=== PATIENT | male | born 1975 | race Caucasian/White ===

== ENCOUNTER 2024-03-14 13:24 | Inpatient (IN) | payer OTHER ==
[2024-03-14 14:03] VITALS: BMI 29.5
[2024-03-14] MEDS ORDERED: DICYCLOMINE HCL 10 MG CAPSULE PO PRN (14:56)
[2024-03-14] MEDS ORDERED: POLYETHYLENE GLYCOL (HEALTHYLAX) 3350 17 GM PACKET PO PRN (14:56)
[2024-03-14] MEDS ORDERED: IBUPROFEN 400 MG TABLET (FP) PO PRN (14:56)
[2024-03-14] MEDS ORDERED: NALOXONE HCL (KLOXXADO) 8 MG SPRAY NS PRN (14:56)
[2024-03-14] MEDS ORDERED: NALOXONE HCL 0.4 MG/ML VIAL IM PRN (14:56)
[2024-03-14] MEDS ORDERED: ACETAMINOPHEN 325 MG TABLET (FP) PO PRN (14:56)
[2024-03-14] MEDS ORDERED: BENZONATATE 200 MG CAPSULE PO PRN (14:56)
[2024-03-14] MEDS ORDERED: guaiFENesin 600 MG TABLET.ER (FP) PO PRN (14:56)
[2024-03-14] MEDS ORDERED: ONDANSETRON *ODT* 4 MG TABLET SL PRN (14:56)
[2024-03-14] MEDS ORDERED: NICOTINE POLACRILEX 4 MG GUM BUC PRN (14:56)
[2024-03-14] MEDS ORDERED: MAGNESIUM HYDROX 2400MG/30ML ORAL SUSPENSION 30 ML CUP PO PRN (14:56)
[2024-03-14] MEDS ORDERED: BENZOCAINE/MENTHOL (CHLORASEPTIC ) LOZENGE MM PRN (14:56)
[2024-03-14] MEDS ORDERED: LOPERAMIDE HCL 2 MG CAPSULE PO PRN (14:56)
[2024-03-14] MEDS ORDERED: BISMUTH SUBSALICYLATE 524 MG/30 ML PO PRN (14:56)
[2024-03-14] MEDS: NICOTINE 21 MG/24 HOURS TOPICAL PATCH TD SCH (16:55)
[2024-03-14] MEDS: IBUPROFEN 600 MG TABLET (FP) PO PRN (18:06)
[2024-03-14] MEDS: hydrOXYzine PAMOATE 25 MG CAPSULE (FP) PO PRN (18:06)
[2024-03-14] MEDS: METHOCARBAMOL 500 MG TABLET PO PRN (18:06)
[2024-03-14] MEDS: NICOTINE POLACRILEX 4 MG LOZENGE BC PRN (18:08)
[2024-03-14] MEDS: THIAMINE 100 MG TABLET PO SCH (22:49)
[2024-03-14] MEDS: MELATONIN 5 MG TABLETS PO SCH (22:49)
[2024-03-15] MEDS: METHOCARBAMOL 500 MG TABLET PO PRN (10:52)
[2024-03-15] MEDS: diazePAM 5 MG TABLET PO SCH (10:52)
[2024-03-15] MEDS: PRENATAL VITAMINS W/ FOLIC ACID TABLET (FP) PO SCH (10:54)
[2024-03-15 12:08] LABS: HEMATOCRIT 39.7 % (35.4-49); HEMOGLOBIN 13.7 GM/dL (11.7-16.9); MCH 32.7 pg (25.7-33.7); MCHC 34.5 g/dl (32.0-35.9); MEAN CELL VOLUME 94.6 fl (80-96); MEAN PLT VOLUME 7.6 fl (7.5-11.1); PLATELET COUNT 211 10^3/uL (134-434); RDW 12.8 % (11.9-15.9)
[2024-03-15 12:20] LABS: BLOOD UREA NITROGEN 13.4 mg/dL (7-18); CALCIUM 8.7 mg/dL (8.5-10.1)
[2024-03-15 12:21] LABS: ALBUMIN 3.1 g/dl (3.4-5.0); BILIRUBIN,TOTAL 0.4 mg/dL (0.2-1); TOT PROT 6.2 g/dl (6.4-8.2)
[2024-03-15 12:24] LABS: CREATININE 0.8 mg/dL (0.55-1.3)
[2024-03-15 13:12] LABS: HIV INTERPRETATION NEGATIVE (NEGATIVE)
[2024-03-15] MEDS: LACTULOSE 20 GM/30 ML UDC (FOR ORAL USE ONLY) PO SCH (17:33)
[2024-03-17] MEDS: diazePAM 5 MG TABLET PO SCH (06:03)
[2024-03-17] MEDS: diazePAM 5 MG TABLET PO PRN (17:08)
[2024-03-18] MEDS: diazePAM 5 MG TABLET PO SCH (05:37)
[2024-03-18] MEDS: MAG HYDROX/AL HYDROX/SIMETH 30 ML UNIT-DOSE CUP PO PRN (20:46)
[2024-03-18] MEDS: cloNIDine HCL 0.1 MG TABLET PO ONE (22:24)
[2024-03-19] MEDS: diazePAM 5 MG TABLET PO ONE (05:43)
[2024-03-19 09:26] VITALS: BP 149/90; PULSE 77; RESP 18; TEMP 97.7
== END 2024-03-19 09:15 | disposition home or self-care (01) | DRG 774 ==
LOC: YASAS 13:24 → Y6N 16:15
PROVIDERS: ADMIT Allergy & Immunology; ATTEND Surgery
PROC: HZ2ZZZZ Detoxification Services for Substance Abuse Treatment (ICD-10-PCS; principal; 2024-03-14)
DX: F10.230 Alcohol dependence with withdrawal, uncomplicated (principal); F14.10 Cocaine abuse, uncomplicated; F12.10 Cannabis abuse, uncomplicated; F17.210 Nicotine dependence, cigarettes, uncomplicated; F41.9 Anxiety disorder, unspecified; I10 Essential (primary) hypertension; E78.5 Hyperlipidemia, unspecified; R79.89 Other specified abnormal findings of blood chemistry; M54.50 Low back pain, unspecified; G89.29 Other chronic pain
CPT/HCPCS: 36415; 80053; 80061; 80305; 80307; 82140; 83036; 85027; 86780; 87389; 87522; 93005; 93010